=== PATIENT | female | born 1990 | race Caucasian/White ===

== ENCOUNTER 2016-11-04 21:22 | Emergency (ER) | payer MEDICAID ==
[~2016-11-04] VITALS: Ht 180.3 cm; Wt 117.9 kg
[2016-11-04 21:33] VITALS: BP 117/74; PULSE 79; RESP 16; TEMP 97.7; O2SAT 98
[2016-11-04] MEDS ORDERED: NACL 0.9% 1,000 ML IV ONE (23:04)
[2016-11-04 23:33] LABS: BASOPHILS % (AUTO) 0.4 % (0.0-2.0); EOSINOPHILS # (AUTO) 0.4 K/uL (0.0-0.4); EOSINOPHILS % (AUTO) 3.1 % (0.0-4.0); HEMATOCRIT 35.5 % (36-48); HEMOGLOBIN 11.3 g/dL (12.0-16.0); LYMPHOCYTES # (AUTO) 3.3 K/uL (1.0-5.5); LYMPHOCYTES % (AUTO) 28.3 % (20.5-51.5); MEAN CORPUSCULAR HEMOGLOBIN 24 pg (27-31); MEAN CORPUSCULAR HGB CONC 32 % (32-36); MEAN CORPUSCULAR VOLUME 76 fL (79.0-98.0); MONOCYTES # (AUTO) 0.9 K/uL (0.0-1.0); NEUTROPHILS # (AUTO) 7.2 K/uL (1.8-7.7); NEUTROPHILS % (AUTO) 60.2 % (40.0-70.0); PLATELET COUNT (AUTO) 249 K/uL (130-430); RED CELL DISTRIBUTION WIDTH 14.4 % (9.0-15.0); WHITE BLOOD COUNT (AUTO) 11.8 K/uL (4.8-10.8)
[2016-11-04 23:41] LABS: CALCIUM 8.4 mg/dL (8.4-11.0); CREATININE 0.79 mg/dL (0.55-1.30); POTASSIUM 3.6 mmol/L (3.5-5.1)
[2016-11-04 23:59] LABS: BILIRUBIN,URINE NEGATIVE (NEGATIVE); BLOOD, URINE 3+ (NEGATIVE); CLARITY/URINE CLEAR (CLEAR); COLOR,URINE YELLOW (YELLOW); GLUCOSE,URINE NEGATIVE (NEGATIVE); KETONES,URINE TRACE (NEGATIVE); LEUKOCYTE ESTERASE ,URINE NEGATIVE (NEGATIVE); NITRITE, URINE NEGATIVE (NEGATIVE); PROTEIN URINE TRACE (NEGATIVE); UROBILINOGEN,URINE 0.2 (0.2-1.0)
[2016-11-05 00:14] LABS: WBC,URINE 0-3 /HPF (0-3)
[2016-11-05 00:15] LABS: BACTERIA,URINE MODERATE /HPF (None Seen); MUCUS,URINE 1+ /LPF (None Seen)
[2016-11-05 01:33] VITALS: BP 117/74; PULSE 79; RESP 16; TEMP 97.7; O2SAT 98
== END 2016-11-05 01:33 | disposition home or self-care (01) ==
LOC: SED 21:22
DX: M25.562 Pain in left knee (principal); F31.9 Bipolar disorder, unspecified; D64.9 Anemia, unspecified
CPT/HCPCS: 29505; 36415; 73564; 80048; 81000; 81025; 85025; 87086; 96360; 99285; J7030

== ENCOUNTER 2018-02-15 23:09 | Emergency (ER) | payer MEDICAID ==
[~2018-02-15] VITALS: Ht 177.8 cm; Wt 93.0 kg
[2018-02-15 23:35] VITALS: BP_SYST 126
[2018-02-16 00:12] LABS: BASOPHILS # (AUTO) 0.1 K/uL (0.0-0.2); BASOPHILS % (AUTO) 0.7 % (0.0-2.0); EOSINOPHILS # (AUTO) 0.1 K/uL (0.0-0.4); EOSINOPHILS % (AUTO) 1.4 % (0.0-4.0); HEMOGLOBIN 11.9 g/dL (12.0-16.0); LYMPHOCYTES # (AUTO) 3.8 K/uL (1.0-5.5); MEAN CORPUSCULAR HEMOGLOBIN 26 pg (27-31); MEAN CORPUSCULAR HGB CONC 33 % (32-36); MEAN CORPUSCULAR VOLUME 79 fL (79.0-98.0); MONOCYTES % (AUTO) 9.8 % (1.7-9.3); NEUTROPHILS # (AUTO) 5.4 K/uL (1.8-7.7); NEUTROPHILS % (AUTO) 51.1 % (40.0-70.0); PLATELET COUNT (AUTO) 323 K/uL (130-430); RED BLOOD CELL COUNT(AUTO) 4.56 MIL/uL (4.2-6.2); RED CELL DISTRIBUTION WIDTH 13.8 % (9.0-15.0); WHITE BLOOD COUNT (AUTO) 10.4 K/uL (4.8-10.8)
[2018-02-16 00:24] LABS: CREATININE 0.85 mg/dL (0.55-1.30); POTASSIUM 3.5 mmol/L (3.5-5.1)
[2018-02-16 00:35] LABS: ALBUMIN 3.9 g/dL (3.4-4.8); TOTAL BILIRUBIN 0.1 mg/dL (0.0-1.0)
[2018-02-16 01:15] LABS: TOTAL IRON BIND. CAPACITY 400 ug/dL (250-450)
[2018-02-16] MEDS ORDERED: IBUPROFEN 800 MG TABLET PO ONE (01:30)
[2018-02-16 01:35] VITALS: BP_SYST 126
== END 2018-02-16 01:35 | disposition home or self-care (01) ==
LOC: SED 23:09
DX: F31.9 Bipolar disorder, unspecified (principal); D50.9 Iron deficiency anemia, unspecified
CPT/HCPCS: 36415; 80053; 83540-TC; 83550-TC; 85025; 99284

== ENCOUNTER 2022-08-15 20:54 | Emergency (ER) | payer BC, MEDICAID ==
[~2022-08-15] VITALS: Ht 180.3 cm; Wt 117.9 kg
[2022-08-15 21:12] VITALS: BP_SYST 144
--- NOTE | 2022-08-15 21:27 | NUR ---
Pt placed in bed 7. Report given to RUPESH Shetty.
--- NOTE | 2022-08-15 22:38 | NUR ---
Doctor Darden is at the bedside assessing patient.
[2022-08-15 23:18] LABS: BILIRUBIN,URINE NEGATIVE (NEGATIVE); BLOOD, URINE NEGATIVE (NEGATIVE); CLARITY/URINE CLEAR (CLEAR); COLOR,URINE YELLOW (YELLOW); GLUCOSE,URINE NEGATIVE (NEGATIVE); KETONES,URINE NEGATIVE (NEGATIVE); LEUKOCYTE ESTERASE ,URINE NEGATIVE (NEGATIVE); NITRITE, URINE NEGATIVE (NEGATIVE); PROTEIN URINE NEGATIVE (NEGATIVE); UROBILINOGEN,URINE 0.2 (0.2-1.0)
[2022-08-15 23:38] LABS: BASOPHILS # (AUTO) 0.1 K/uL (0.0-0.2); BASOPHILS % (AUTO) 0.6 % (0.0-2.0); EOSINOPHILS # (AUTO) 0.3 K/uL (0.0-0.4); EOSINOPHILS % (AUTO) 2.5 % (0.0-4.0); HEMATOCRIT 31.6 % (36-48); HEMOGLOBIN 9.9 g/dL (12.0-16.0); LYMPHOCYTES # (AUTO) 2.8 K/uL (1.0-5.5); MEAN CORPUSCULAR HEMOGLOBIN 22 pg (27-31); MEAN CORPUSCULAR HGB CONC 31 % (32-36); MEAN CORPUSCULAR VOLUME 70 fL (79.0-98.0); MONOCYTES % (AUTO) 9.6 % (1.7-9.3); NEUTROPHILS # (AUTO) 6.4 K/uL (1.8-7.7); NEUTROPHILS % (AUTO) 60.3 % (40.0-70.0); PLATELET COUNT (AUTO) 303 K/uL (130-430); RED BLOOD CELL COUNT(AUTO) 4.55 MIL/uL (4.2-6.2); RED CELL DISTRIBUTION WIDTH 16.9 % (9.0-15.0); WHITE BLOOD COUNT (AUTO) 10.5 K/uL (4.8-10.8)
--- NOTE | 2022-08-15 23:50 | NUR ---
Patient escorted to ultrasound by medical laboratory technicians.
[2022-08-15 23:54] LABS: CALCIUM 9.1 mg/dL (8.4-11.0); CREATININE 0.6 mg/dL (0.55-1.30)
[2022-08-16 00:19] LABS: ALBUMIN 3.3 g/dL (3.4-4.8); TOTAL BILIRUBIN 0.2 mg/dL (0.0-1.0)
--- NOTE | 2022-08-16 00:46 | NUR ---
Patient returned from ultrasound escorted by graphic art technician.
[2022-08-16] MEDS ORDERED: ACET-2634 PO (01:22)
[2022-08-16] MEDS ORDERED: DOXY1TAB3 PO (01:23)
== END 2022-08-16 01:35 | disposition home or self-care (01) ==
LOC: SED 20:54
DX: O00.01 Abdominal pregnancy with intrauterine pregnancy (principal); O34.80 Maternal care for other abnormalities of pelvic organs, unspecified trimester; O13.3 Gestational [pregnancy-induced] hypertension without significant proteinuria, third trimester; Z3A.01 Less than 8 weeks gestation of pregnancy; Z79.899 Other long term (current) drug therapy
CPT/HCPCS: 36415; 76705; 76801; 76817; 80053; 81003; 81025; 83690; 84702; 85025; 99284

== ENCOUNTER 2023-05-11 19:52 | Emergency (ER) | payer BC ==
[~2023-05-11 19:52] MED LIST: ACET-2634 PO; DOXY1TAB3 PO
== END 2023-05-11 20:26 | disposition left against medical advice (07) ==
LOC: SED 19:52
DX: T88.9XXA Complication of surgical and medical care, unspecified, initial encounter (principal); Z53.21 Procedure and treatment not carried out due to patient leaving prior to being seen by health care provider